=== PATIENT | female | born 1990 | race Caucasian/White ===

== ENCOUNTER 2019-11-17 22:07 | Emergency (ER) | payer MEDICAID ==
[~2019-11-17] VITALS: Ht 154.9 cm; Wt 72.6 kg
[2019-11-17 22:12] VITALS: BP 132/63
[2019-11-17 22:17] VITALS: BP 132/63
--- NOTE | 2019-11-17 22:17 | NUR ---
29 Y/O FEMALE C/O RT EYE PAIN, STATES SHE SCRATCHED HER EYE WITH HER NAIL X 3 HRS AGO. PER PATIENT, " I WAS PICKING MY BABY UP AND GOT SCRATCHED IN THE EYE". PAIN IS A 7/10 SHARP PAIN. NOTED REDNESS IN THE RIGHT EYE. VISION IS BLURRED PATIENT IS UNABLE TO OPEN EYE, "WHEN I OPEN MY EYE, I WANT TO CLOSE IT SHUT AGAIN". PALPATION IS TENDER TO TOUCH. ERMD MADE AWARE OF STATUS. SIDE RAILSX1. AT BEDSIDE. PMH: DENIES RX:DENIES NKDA
--- NOTE | 2019-11-17 22:17 | NUR ---
PT AMBULATED TO BED #11
[2019-11-17] MEDS ORDERED: FLUORESCEIN OPTH STRIP 1 MG OP ONE (22:40)
[2019-11-17] MEDS ORDERED: TETRACAINE HCL/PF 0.5% OPTH 4 ML BTL OP ONE (22:40)
--- NOTE | 2019-11-17 23:12 | NUR ---
Dr. Berrios examining patient.
[2019-11-17] MEDS ORDERED: KETOROLAC 30 MG/ML VIAL IM ONE (23:15)
--- NOTE | 2019-11-17 23:32 | NUR ---
Patient discharged with v/s stable. Written and verbal after care instructions given and explained. Patient alert, oriented and verbalized understanding of instructions. Ambulatory with steady gait. All questions addressed prior to discharge. ID band removed. Patient advised to follow up with PMD. Rx of NORCO, NNAPROSYN AND TOBRAMYCIN given. Patient educated on indication of medication including possible reaction and side effects. Opportunity to ask questions provided and answered.
== END 2019-11-17 23:22 | disposition home or self-care (01) ==
LOC: MED 22:07
DX: S05.01XA Injury of conjunctiva and corneal abrasion without foreign body, right eye, initial encounter (principal); W50.4XXA Accidental scratch by another person, initial encounter; Y93.89 Activity, other specified; Y92.89 Other specified places as the place of occurrence of the external cause; Y99.8 Other external cause status
CPT/HCPCS: 96372; 99283; J1885

== ENCOUNTER 2019-11-30 00:12 | Emergency (ER) | payer MEDICAID ==
[~2019-11-30] VITALS: Ht 152.4 cm; Wt 71.0 kg
[2019-11-30 00:20] VITALS: BP 110/67
--- NOTE | 2019-11-30 00:20 | NUR ---
29 Y/O UTI S/SX: HEMATUIRA, OLIGURIA, URGENCY, LEFT SIDE LOWER BACK PAIN X 10 DAYS. BEEN TREATING AT HOME WITH AZO. NO RELIEF. PATIENT STATES, "I HAVE BLEEDING WHEN I URINATE". DENIES N/V/D. ERMD MADE AWARE OF STATUS. SIDE RAILSX1. WILL CONTINUE TO MONITOR. PMH-- DENIES RX: DENIES NKDA
--- NOTE | 2019-11-30 00:45 | NUR ---
PT AMBULATED TO BED 2 WITH SPOUSE
--- NOTE | 2019-11-30 01:08 | NUR ---
URINE COLLECTED AND SENT TO LAB.
[2019-11-30] MEDS ORDERED: cefTRIAXone 1,000 MG in LIDOCAINE MPF 1% 2.1 ML IM ONE (01:10)
[2019-11-30] MEDS ORDERED: LIDOCAINE MPF 1% 5 ML ONE (01:16)
[2019-11-30] MEDS ORDERED: cefTRIAXone 1,000 MG VIAL ONE (01:16)
[2019-11-30 01:21] VITALS: BP 110/67
--- NOTE | 2019-11-30 01:21 | NUR ---
Patient discharged with v/s stable. Written and verbal after care instructions given and explained. Patient alert, oriented and verbalized understanding of instructions. Ambulatory with steady gait. All questions addressed prior to discharge. ID band removed. Patient advised to follow up with PMD. Rx of MACROBID; PYRIDIUM given. Patient educated on indication of medication including possible reaction and side effects. Opportunity to ask questions provided and answered. Addendum: 11/30/19 at 0123 by LISSETTE DISCHARGED BY DR. BEVERLY.
[2019-11-30 01:24] LABS: BILIRUBIN,URINE 2+ (NEGATIVE); BLOOD, URINE 3+ (NEGATIVE); COLOR,URINE AMBER (YELLOW); LEUKOCYTE ESTERASE ,URINE 2+ (NEGATIVE); NITRITE, URINE POSITIVE (NEGATIVE); PH,URINE 6.5 (5.0-9.0); UGLUCOSE 1+ (NEGATIVE)
[2019-11-30 01:27] LABS: APPEARANCE,URINE CLOUDY (CLEAR)
[2019-11-30 01:29] LABS: RBC,URINE TOO NUMEROUS TO COUN /HPF (0-5); WBC,URINE TOO MANY TO COUNT /HPF (0-5)
== END 2019-11-30 01:23 | disposition home or self-care (01) ==
LOC: MED 00:12
DX: N39.0 Urinary tract infection, site not specified (principal)
CPT/HCPCS: 81001; 81025; 87086; 87186; 96372; 99283; J0696; J2001

== ENCOUNTER 2022-05-14 12:30 | Emergency (ER) | payer MEDICAID, OTHER ==
[~2022-05-14] VITALS: Ht 152.4 cm; Wt 75.3 kg
[2022-05-14 12:35] VITALS: BP 132/70
--- NOTE | 2022-05-14 12:40 | NUR ---
DR BEVERLY IN TRIAGE FOR EVAL
--- NOTE | 2022-05-14 12:43 | NUR ---
AMBULATED TO BATHROOM WITH STEADY GAIT
--- NOTE | 2022-05-14 12:51 | NUR ---
DR BEVERLY AT BEDSIDE FOR EVAL
--- NOTE | 2022-05-14 12:53 | NUR ---
31 Y/O FEMALE C/O FO FEVER AND CHILLS, TEMP IN TRIAGE 99.8 ORAL, DENIES TAKING ANYTHING FOR FEVER. WAS IN [place] ON 05/09/22 FOR GASTRIC SLEEVE SURGERY. DENIES ANY PAIN, N/V/D OR URINARY SYMPTOMS, DENIES ANY COUGH NKA PMH: DENIES
--- NOTE | 2022-05-14 13:04 | NUR ---
Patient discharged with v/s stable. Written and verbal after care instructions ABOUT VIRAL ILLNESS given and explained. Patient verbalized understanding. Ambulatory with steady gait. All questions addressed prior to discharge. Advised to follow up with PMD.
[2022-05-14 13:07] LABS: APPEARANCE,URINE CLEAR (CLEAR); BILIRUBIN,URINE 2+ (NEGATIVE); BLOOD, URINE TRACE-I (NEGATIVE); COLOR,URINE YELLOW (YELLOW); LEUKOCYTE ESTERASE ,URINE NEGATIVE (NEGATIVE); NITRITE, URINE NEGATIVE (NEGATIVE); UGLUCOSE NEGATIVE (NEGATIVE)
[2022-05-14 13:30] LABS: RBC,URINE 0-5 /HPF (0-5)
[2022-05-14 13:31] LABS: WBC,URINE 0-5 /HPF (0-5); YEAST,URINE None Seen /HPF (None Seen)
== END 2022-05-14 13:04 | disposition home or self-care (01) ==
LOC: MED 12:30
DX: R50.82 Postprocedural fever (principal); Z98.890 Other specified postprocedural states
CPT/HCPCS: 81001; 81025; 99283